=== PATIENT | female | born 1935 | race Caucasian/White ===

== ENCOUNTER → 2022-04-24 | Day surgery (SDC) | payer MEDICARE ==
[~2022-04-24] VITALS: Ht 149.9 cm; Wt 74.8 kg
[~2022-04-24] MED LIST: ASPIRIN EC81 MG PO; CLEOCIN300 MG PO; EZETIMIBE10 MG PO; FIBER500 MG PO; LASIX20 MG PO; LISINOPRIL10 MG PO; NORCO 5-325 TA1 EACH PO; POTASSIUM CHLO10 ME1 PO; PROBIOTIC1 EAC2 PO; VITAMIN D325 MC2 PO
[2022-04-24 08:31] LABS: HGB 14.4 g/dl (12.5-16.0); MCH 30.3 pg (25.0-31.0); MCHC 33.5 g/dL (32.0-36.0); MCV 90.3 fL (78.0-100.0); MPV 10.2 fL (6.0-9.5); RBC 4.76 M/uL (4.20-5.40); RDW 12.8 % (11.5-14.0); WBC 7.5 K/uL (4.0-10.5)
== END | disposition home or self-care (01) ==
LOC: FAS 07:24
PROVIDERS: Surgery
DX: Z12.11 Encounter for screening for malignant neoplasm of colon (principal); K64.1 Second degree hemorrhoids; E78.5 Hyperlipidemia, unspecified; I10 Essential (primary) hypertension; E11.9 Type 2 diabetes mellitus without complications; Z86.010 Personal history of colon polyps; Z85.038 Personal history of other malignant neoplasm of large intestine; Z88.0 Allergy status to penicillin; Z88.2 Allergy status to sulfonamides
CPT/HCPCS: 36415; J1100; J1610; J1956; J2250; J2704; J7120